=== PATIENT | female | born 1985 | race Two or more races ===

== ENCOUNTER 2017-06-22 07:39 | Inpatient (IN) | payer MEDICAID ==
[~2017-06-22] VITALS: Ht 157.5 cm; Wt 76.2 kg
[2017-06-22] MEDS ORDERED: OXYTOCIN 10 UNIT/ML VIAL. ONE (08:41)
[2017-06-22] MEDS ORDERED: ONDANSETRON PF 4 MG/2 ML VIAL. ONE (08:41)
[2017-06-22] MEDS ORDERED: MORPHINE PF 5 MG/10 ML VIAL. ONE (08:41)
[2017-06-22] MEDS ORDERED: fentaNYL PF VIAL 100 MCG/2 ML VIAL ONE (08:41)
[2017-06-22] MEDS ORDERED: PHENYLEPHRINE in 0.9% NACL PF 1 MG/10 ML DISP.SYRIN. IV ONE (08:42)
[2017-06-22] MEDS ORDERED: ePHEDrine PF IN SALINE 50 MG/5 ML DISP.SYRIN IV ONE (08:42)
[2017-06-22] MEDS ORDERED: 0.9 % SODIUM CHLORIDE 10 ML DISP.SYRIN. IV PRN ×2 (08:45→10:45)
[2017-06-22] MEDS ORDERED: IBUPROFEN 600 MG TABLET. PO PRN (08:45)
[2017-06-22] MEDS ORDERED: TERBUTALINE 1 MG/ML VIAL. SQ PRN (08:45)
[2017-06-22] MEDS ORDERED: LIDOCAINE 1% PF 30 ML VIAL. INJ PRN (08:45)
[2017-06-22] MEDS ORDERED: ONDANSETRON PF 4 MG/2 ML VIAL. IV PRN ×3 (08:45→10:45)
[2017-06-22] MEDS ORDERED: DOCUSATE SODIUM 283 MG/5 ML ENEMA. PR PRN (08:45)
[2017-06-22] MEDS ORDERED: fentaNYL PF VIAL 100 MCG/2 ML VIAL IV PRN (08:45)
[2017-06-22] MEDS ORDERED: ATROPINE 0.5 MG/5 ML DISP.SYRIN. IV PRN (08:45)
[2017-06-22] MEDS ORDERED: diphenhydrAMINE 50 MG/ML VIAL IV PRN (08:45)
[2017-06-22] MEDS ORDERED: NALOXONE 0.4 MG/ML VIAL. IV PRN (08:45)
[2017-06-22] MEDS ORDERED: OXYTOCIN 30 UNIT/500 ML PREMIX 500 ML IV PRN ×2 (08:45→10:45)
--- NOTE | 2017-06-22 08:54 | PDOC1 ---
OB - History Hx of Present Care: Good Care Ultrasounds: Normal mid trimester US Obstetrical Complications: None Medical Complications: None Past Family/Social History * Past Medical, Surgical, Family and Obstetric Histories reviewed from chart. Rubella: Immune RPR/VDRL: Negative GBS Status: Negative HBsAG: Negative OB - Chief Complaint & HPI Date of Admission: Date of Admission: Jun 22, 2017 at 07:39 Chief Complaint/History : 4 Para: 3 EGA: 39 Indication for : desires repeat (and BTL) Admission Nurse Assessment Rev: Yes Problems: OB - Admission Exam Physical Exam HEENT: Normal Heart: Regular Rate Lungs: Clear Abdomen: Gravid, Non tender, Soft Extremities: Edema Reflexes: Normal Cervical Dilatation: 1cm Effacement: 50% Station: -3 Membranes: Intact Heart Rate: Normal Accelerations: Accelerations Present Decelerations: No decelerations Contractions on Admission: 6-10 Minutes Apart Intensity: Mild Text A: 39 wks IUP Previous c/s Desires BTL P: Admit for repeat c/s and BTL. DARRYL GARCIA Jr, MD Jun 22, 2017 08:54
[2017-06-22] MEDS ORDERED: IV RINGERS,LACTATED 500ML 500 ML IV ONE (09:00)
[2017-06-22] MEDS: IV RINGERS,LACTATED 1000ML 1,000 ML IV SCH ×3 (09:05→19:45)
[2017-06-22 09:10] LABS: HEMATOCRIT 33.7 % (36.0-47.0); HEMOGLOBIN 11.5 g/dL (12.0-15.5); RED BLOOD COUNT 4.34 x10^6/uL (3.50-5.40); WHITE BLOOD COUNT 7.8 x10^3/uL (4.0-11.0)
[2017-06-22 09:18] LABS: BILIRUBIN,URINE NEGATIVE (NEG); GLUCOSE,URINE NEGATIVE (NEG); NITRITE,URINE NEGATIVE (NEG); PROTEIN,URINE 30 mg/dL (NEG-TRACE)
[2017-06-22 09:19] LABS: BACTERIA,URINE MANY /HPF (0-FEW); SQUAMOUS EPITHELIAL CELL,UR MANY /LPF
[2017-06-22] MEDS ORDERED: ceFAZolin 2GM PREMIX 2 GM/50 ML BAG IV ONE (09:30)
[2017-06-22] MEDS ORDERED: GLYCOPYRROLATE 1 MG/5 ML VIAL. ONE (09:39)
--- NOTE | 2017-06-22 10:34 | PDOC4 ---
OB Operative Note PRE OP DIAGNOSIS: Previoujs C- section (Desires BTL) POST OP DIAGNOSIS: Other (Same) OPERATION PERFORMED: R KTSC (and BTL) Surgeon Dr. Galeana Anesthesia: Regional (Spinal) Blood Loss 700 ml Specimen placenta and OB Findings: Position (Vertex), Sex (Female), (8/9), Weight (3015 Gram), Fluid (Clear), Nuchal Cord (x1) Complications none Additional Remarks pt. DARRYL Delgado Jr, MD Jun 22, 2017 10:34
[2017-06-22] MEDS ORDERED: SIMETHICONE 80 MG TAB.CHEW PO PRN (10:45)
[2017-06-22] MEDS ORDERED: KETOROLAC 30 MG/ML INJ. IV PRN (10:45)
[2017-06-22] MEDS ORDERED: MAG HYDROX/ALUMINUM HYD/SIMETH 30 ML ORAL.SUSP PO PRN (10:45)
[2017-06-22] MEDS ORDERED: DOCUSATE SODIUM 100 MG CAPSULE. PO PRN (10:45)
[2017-06-22] MEDS ORDERED: diphenhydrAMINE ORAL ELIXIR 12.5 MG/5 ML ML PO PRN (10:45)
[2017-06-22] MEDS ORDERED: ZOLPIDEM 5 MG TABLET. PO PRN (10:45)
--- NOTE | 2017-06-22 11:03 | OP ---
DATE OF SURGERY: 06/22/2017 PREOPERATIVE DIAGNOSES: 1. 39 weeks intrauterine . 2. Previous . 3. Desires bilateral tubal ligation. POSTOPERATIVE DIAGNOSES: 1. 39 weeks intrauterine . 2. Previous . 3. Desires bilateral tubal ligation. PROCEDURE: Repeat low transverse section and bilateral tubal ligation via the [place] method. SURGEON: Darryl Galeana MD. ANESTHESIA: Spinal. ESTIMATED BLOOD LOSS: 700 mL. COMPLICATIONS: None. FINDINGS: Viable female infant, Apgars 8 and 9, weight grams. Nuchal cord x 1, 3-vessel cord placenta delivered manually intact. SUMMARY: A 31-year-old 3, para 2 at 39 weeks who presented for repeat and bilateral tubal ligation. She was counseled on risks, benefits and expectations as well as the failure rate from tubal ligation and voiced clear understanding to proceed. DESCRIPTION OF PROCEDURE: The patient was taken to surgery suite, placed in the dorsal supine position. She was prepped with ChloraPrep and draped in sterile fashion. After adequate anesthesia, a Pfannenstiel skin incision was made with a scalpel down to and through the fascia. The fascia was extended laterally using curved Young scissors. The superior edge of the fascia grasped with 2 Nir clamps and dissected free of the abdominal rectus muscles using blunt dissection along with Bovie cautery. Same process took place inferiorly. The abdominal rectus muscles were dissected using curved Young scissors. The peritoneum was entered with Metzenbaum scissors and extended superiorly as well as inferiorly. The Ezekiel ring retractor was placed. Bladder flap was created using the [place] pickups and sharp dissection with Metzenbaum scissors. A low transverse hysterotomy incision was made with scalpel down to amniotic sac. The hysterotomy incision was extended laterally and superiorly. Amniotomy was performed using an Allis clamp, which elicited moderate amount of clear fluid. With the aid of fundal pressure, the infant's head was delivered in a smooth atraumatic manner. Nuchal cord x 1 was visualized and reduced. With additional fundal pressure, the anterior shoulder was delivered followed by posterior shoulder and rest of the female was delivered. The infant was suctioned with bulb syringe orally and nasally. The umbilical cord was clamped twice and cut. A viable female infant was handed to awaiting nursing staff. Umbilical cord blood was then obtained. Three-vessel cord placenta was delivered manually intact. The uterus was then exteriorized and cleared of clot and debris with a moist lap. Hysterotomy incision was reapproximated using 1-0 Vicryl suture in running locked fashion. [id number] sutures were placed in the left apex of the hysterotomy incision. This also included the left uterine artery ligation for better hemostasis. The uterus palpated firm, fallopian tubes and ovaries appeared normal bilaterally. Posterior cul-de-sac was cleared of clot and debris with a moist lap. The right fallopian tube was grasped with a Humble, undermined with Bovie cautery. The proximal and distal ends of the fallopian tube were tied with plain gut suture. The mid section of fallopian tube was removed with an aid of Metzenbaum scissors. The 2 telescoping ends were visualized and hemostatic. Same process took place on the left fallopian tube. The uterus was then returned to the abdomen. Hysterotomy incision was reviewed and was hemostatic. The pericolic gutters were cleared of clot and debris with a moist lap. Interceed was placed over the hysterotomy incision in an inverted T fashion. The Ezekiel ring retractor was removed. The peritoneum was reapproximated using 1-0 Vicryl suture in a running fashion. Fascia was reapproximated using 0 Vicryl suture in a running fashion. Skin was reapproximated using 4-0 Vicryl suture in subcuticular manner. The patient tolerated the procedure well and was taken to recovery room in stable condition. Sponge and needle count correct x 3. DRARYL GALEANA MD DR: MEE/quincy JOB#: [id number] / [id number]
[2017-06-22 13:37] VITALS: BP 95/61
[2017-06-22] MEDS: FERROUS SULFATE 325 MG TABLET. PO SCH (17:00)
[2017-06-22 17:15] VITALS: BP 102/68
[2017-06-22 19:30] VITALS: BP 91/54
[2017-06-23 01:18] VITALS: BP 92/53
[2017-06-23] MEDS: IBUPROFEN 800 MG TABLET. PO PRN ×3 (01:22→21:03)
[2017-06-23 06:22] LABS: BASO % 0 % (0-3); EOS % 0 % (0-3); HEMATOCRIT 30.1 % (36.0-47.0); HEMOGLOBIN 10.1 g/dL (12.0-15.5); LYMPH % 20 % (24-48); MEAN CORPUSCULAR HEMOGLOBIN 26 pg (25-35); MEAN CORPUSCULAR HGB CONC 33 g/dL (31-37); MEAN CORPUSCULAR VOLUME 78 fL (79-100); MONO % 7 % (0-9); NEUT % 72 % (31-73); PLATELET COUNT 257 x10^3/uL (140-400); RED BLOOD COUNT 3.87 x10^6/uL (3.50-5.40); RED CELL DISTRIBUTION WIDTH 15.2 % (11.5-14.5); WHITE BLOOD COUNT 9.9 x10^3/uL (4.0-11.0)
[2017-06-23 06:23] VITALS: BP 102/68
[2017-06-23] MEDS: FERROUS SULFATE 325 MG TABLET. PO SCH ×2 (06:59→17:00)
--- NOTE | 2017-06-23 08:12 | PDOC ---
OB Progress Note Date of Service 06/23/17 Time of Evaluation 0810 Notes Pt. feeling well. Pain controlled. she is breast feeding. Lochia minimal. Pt. ambulating, voiding and tolerating regular diet. Lab Laboratory Tests Test 06/22/17 08:25 06/22/17 08:30 06/23/17 06:02 White Blood Count 7.8 x10^3/uL (4.0-11.0) 9.9 x10^3/uL (4.0-11.0) Red Blood Count 4.34 x10^6/uL (3.50-5.40) 3.87 x10^6/uL (3.50-5.40) Hemoglobin 11.5 g/dL (12.0-15.5) 10.1 g/dL (12.0-15.5) Hematocrit 33.7 % (36.0-47.0) 30.1 % (36.0-47.0) Mean Corpuscular Volume 78 fL (79-100) 78 fL (79-100) Mean Corpuscular Hemoglobin 27 pg (25-35) 26 pg (25-35) Mean Corpuscular Hemoglobin Concent 34 g/dL (31-37) 33 g/dL (31-37) Red Cell Distribution Width 15.0 % (11.5-14.5) 15.2 % (11.5-14.5) Platelet Count 320 x10^3/uL (140-400) 257 x10^3/uL (140-400) RPR Titer Additional Testing Non reactive (Non Reactive) Urine Collection Type Unknown Urine Color Straw Urine Clarity Hazy Urine pH 7.0 Urine Specific Monitor 1.020 Urine Protein 30 mg/dL (NEG-TRACE) Urine Glucose (UA) Negative mg/dL (NEG) Urine Ketones (Stick) Negative mg/dL (NEG) Urine Blood Moderate (NEG) Urine Nitrite Negative (NEG) Urine Bilirubin Negative (NEG) Urine Urobilinogen Dipstick 1.0 mg/dL (0.2 mg/dL) Urine Leukocyte Esterase Large (NEG) Urine RBC 3-5 /HPF (0-2) Urine WBC 11-20 /HPF (0-4) Urine Squamous Epithelial Cells Many /LPF Urine Bacteria Many /HPF (0-FEW) Neutrophils (%) (Auto) 72 % (31-73) Lymphocytes (%) (Auto) 20 % (24-48) Monocytes (%) (Auto) 7 % (0-9) Eosinophils (%) (Auto) 0 % (0-3) Basophils (%) (Auto) 0 % (0-3) Neutrophils # (Auto) 7.2 x10^3uL (1.8-7.7) Lymphocytes # (Auto) 2.0 x10^3/uL (1.0-4.8) Monocytes # (Auto) 0.7 x10^3/uL (0.0-1.1) Eosinophils # (Auto) 0.0 x10^3/uL (0.0-0.7) Basophils # (Auto) 0.0 x10^3/uL (0.0-0.2) Laboratory Tests Test 06/22/17 08:25 06/22/17 08:30 06/23/17 06:02 White Blood Count 7.8 x10^3/uL (4.0-11.0) 9.9 x10^3/uL (4.0-11.0) Red Blood Count 4.34 x10^6/uL (3.50-5.40) 3.87 x10^6/uL (3.50-5.40) Hemoglobin 11.5 g/dL (12.0-15.5) 10.1 g/dL (12.0-15.5) Hematocrit 33.7 % (36.0-47.0) 30.1 % (36.0-47.0) Mean Corpuscular Volume 78 fL (79-100) 78 fL (79-100) Mean Corpuscular Hemoglobin 27 pg (25-35) 26 pg (25-35) Mean Corpuscular Hemoglobin Concent 34 g/dL (31-37) 33 g/dL (31-37) Red Cell Distribution Width 15.0 % (11.5-14.5) 15.2 % (11.5-14.5) Platelet Count 320 x10^3/uL (140-400) 257 x10^3/uL (140-400) RPR Titer Additional Testing Non reactive (Non Reactive) Urine Collection Type Unknown Urine Color Straw Urine Clarity Hazy Urine pH 7.0 Urine Specific Monitor 1.020 Urine Protein 30 mg/dL (NEG-TRACE) Urine Glucose (UA) Negative mg/dL (NEG) Urine Ketones (Stick) Negative mg/dL (NEG) Urine Blood Moderate (NEG) Urine Nitrite Negative (NEG) Urine Bilirubin Negative (NEG) Urine Urobilinogen Dipstick 1.0 mg/dL (0.2 mg/dL) Urine Leukocyte Esterase Large (NEG) Urine RBC 3-5 /HPF (0-2) Urine WBC 11-20 /HPF (0-4) Urine Squamous Epithelial Cells Many /LPF Urine Bacteria Many /HPF (0-FEW) Neutrophils (%) (Auto) 72 % (31-73) Lymphocytes (%) (Auto) 20 % (24-48) Monocytes (%) (Auto) 7 % (0-9) Eosinophils (%) (Auto) 0 % (0-3) Basophils (%) (Auto) 0 % (0-3) Neutrophils # (Auto) 7.2 x10^3uL (1.8-7.7) Lymphocytes # (Auto) 2.0 x10^3/uL (1.0-4.8) Monocytes # (Auto) 0.7 x10^3/uL (0.0-1.1) Eosinophils # (Auto) 0.0 x10^3/uL (0.0-0.7) Basophils # (Auto) 0.0 x10^3/uL (0.0-0.2) Medications Current Medications Ondansetron HCl (Zofran) 4 mg PRN Q6HRS PRN IV NAUSEA/VOMITING; Start 06/22/17 at 08:45; Stop 06/22/17 at 15:18; Status DC Diphenhydramine HCl (Benadryl) 12.5 mg PRN Q2HR PRN IV ITCHING; Start 06/22/17 at 08:45; Stop 06/23/17 at 08:44 Atropine Sulfate 0.5 mg PRN 1X PRN IV SEE COMMENTS; Start 06/22/17 at 08:45; Stop 06/22/17 at 15:18; Status DC Naloxone HCl (Narcan) 0.04 mg PRN Q2MIN PRN IV SEE COMMENTS; Start 06/22/17 at 08:45; Stop 06/23/17 at 08:44 Sodium Chloride (Normal Saline Flush) 3 ml QSHIFT PRN IV AFTER MEDS AND BLOOD DRAWS; Start 06/22/17 at 08:45; Stop 06/22/17 at 15:18; Status DC Ringer's Solution 1,000 ml @ 125 mls/hr Q8H IV Last administered on 06/22/17t 19:45; Start 06/22/17 at 08:39 Fentanyl Citrate (Fentanyl 2ml Vial) 50 mcg PRN Q30MIN PRN IV Mild to moderate pain; Start 06/22/17 at 08:45 Ondansetron HCl (Zofran) 4 mg PRN Q4HRS PRN IV NAUSEA/VOMITING; Start 06/22/17 at 08:45; Stop 06/22/17 at 15:18; Status DC Terbutaline Sulfate (Brethine) 0.25 mg 1X PRN PRN SQ SEE COMMENTS; Start at 08:45; Stop 06/22/17 at 15:18; Status DC Lidocaine HCl 30 ml 1X PRN PRN INJ SEE COMMENTS; Start 06/22/17 at 08:45; Stop 06/22/17 at 15:18; Status DC Oxytocin/Sodium Chloride 500 ml @ 0 mls/hr CONT PRN PRN IV Post delivery bleeding; Start 06/22/17 at 08:45; Stop 06/22/17 at 15:18; Status DC Ibuprofen (Motrin) 600 mg PRN Q6HRS PRN PO PAIN; Start 06/22/17 at 08:45 Docusate Sodium (Enemeez) 283 mg PRN DAILY PRN DE CONSTIPATION; Start 06/22/17 at 08:45 Cefazolin Sodium/ Dextrose 50 ml @ 100 mls/hr 1X ONCE IV ; Start 06/22/17 at 08:45; Stop 06/22/17 at 15:18; Status DC Ringer's Solution 500 ml @ 500 mls/hr 1X ONCE IV ; Start 06/22/17 at 09:00; Stop 06/22/17 at 15:18; Status DC Glycopyrrolate (Robinul) 1 mg STK-MED ONCE .ROUTE ; Start 06/22/17 at 09:39; Stop 06/22/17 at 15:18; Status DC Ondansetron HCl (Zofran) 4 mg STK-MED ONCE .ROUTE ; Start 06/22/17 at 08:41; Stop 06/22/17 at 15:18; Status DC Oxytocin (Pitocin) 10 unit STK-MED ONCE .ROUTE ; Start 06/22/17 at 08:41; Stop 06/22/17 at 15:18; Status DC Morphine Sulfate (Morphine Preservative Free) 5 mg STK-MED ONCE .ROUTE ; Start 06/22/17 at 08:41; Stop 06/22/17 at 15:18; Status DC Ephedrine Sulfate 50 mg STK-MED ONCE IV ; Start 06/22/17 at 08:42; Stop at 15:18; Status DC Phenylephrine HCl 1 mg STK-MED ONCE IV ; Start 06/22/17 at 08:42; Stop 06/22/17 at 15:18; Status DC Fentanyl Citrate (Fentanyl 2ml Vial) 100 mcg STK-MED ONCE .ROUTE ; Start at 08:41; Stop 06/22/17 at 15:18; Status DC Sodium Chloride (Normal Saline Flush) 3 ml QSHIFT PRN IV AFTER MEDS AND BLOOD DRAWS; Start 06/22/17 at 10:45 Oxytocin/Sodium Chloride 500 ml @ 125 mls/hr CONT PRN IV EXCESSIVE POST- BLEEDING; Start 06/22/17 at 10:45; Stop 06/22/17 at 18:44; Status DC Ibuprofen (Motrin) 800 mg PRN Q8HRS PRN PO INFLAMMATION Last administered on t 01:22; Start 06/22/17 at 10:45 Ondansetron HCl (Zofran) 4 mg PRN Q6HRS PRN IV NAUSEA/VOMITING; Start 06/22/17 at 10:45 Docusate Sodium (Colace) 100 mg PRN BID PRN PO CONSTIPATION; Start 06/22/17 at 10:45 Al Hydroxide/Mg Hydroxide (Mylanta Plus Xs) 30 ml PRN Q4HRS PRN PO HEARTBURN / GAS; Start 06/22/17 at 10:45 Simethicone (Gas-X) 80 mg PRN AFTMEALHC PRN PO GAS / BLOATING; Start 06/22/17 at 10:45 Diphenhydramine HCl (Benadryl Oral Elixir) 12.5 mg PRN Q6HRS PRN PO ITCHING; Start 06/22/17 at 10:45 Ferrous Sulfate (Feosol) 325 mg BIDWMEALS PO ; Start 06/22/17 at 17:00 Zolpidem Tartrate (Ambien) 5 mg PRN QHS PRN PO INSOMNIA, MAY REPEAT X1; Start 06/22/17 at 10:45 Oxycodone/ Acetaminophen (Percocet 5/325) 2 tab PRN Q4HRS PRN PO MODERATE PAIN , SEVERE PAIN; Start 06/22/17 at 10:45 Ketorolac Tromethamine (Toradol) 30 mg PRN Q6HRS PRN IV PAIN; Start 06/22/17 at 10:45; Stop 06/27/17 at 10:44 Exam Abd: soft, mild tenderness, fundus firm Bandage removed. Incision site: clean, dry and intact Assessment POD#1 s/p repeat c/s and BTL Plan of Care: Continue current Tx, Mgmt DARRYL GARCIA Jr, MD Jun 23, 2017 08:12
[2017-06-23] MEDS: oxyCODONE/APAP 5/325 1 TAB TABLET PO PRN ×3 (08:31→21:03)
[2017-06-23 11:54] VITALS: BP 104/72
[2017-06-23 18:06] VITALS: BP 98/68
[2017-06-23 21:00] VITALS: BP 90/67
[2017-06-24 05:00] VITALS: BP 112/75
[2017-06-24] MEDS: IBUPROFEN 800 MG TABLET. PO PRN ×2 (05:49→13:42)
[2017-06-24] MEDS: oxyCODONE/APAP 5/325 1 TAB TABLET PO PRN ×2 (05:49→13:42)
[2017-06-24 09:42] VITALS: BP 99/60
[2017-06-24] MEDS ORDERED: IBUP-1060 PO (13:28)
[2017-06-24] MEDS ORDERED: DOCU-109 PO (13:28)
[2017-06-24] MEDS ORDERED: OXYC-323 PO (13:28)
--- NOTE | 2017-06-24 13:58 | PATHOLOGY ---
PATHOLOGY REPORT * * * * * * * * FINAL DIAGNOSIS: A. Right tubal ligation: - Segment of fallopian tube confirmed. B. Left tubal ligation: - Segment of fallopian tube confirmed. (JPM:keshav; 06/24/2017) REPORT ELECTRONICALLY SIGNED BY: Jovany Neal M.D. DATE/TIME: 06/24/2017 13:46 * * * * * * * * GROSS PATHOLOGY: A. Received in formalin labeled "Steve Sykes R fallopian tube," is a non-fimbriated segment of fallopian tube measuring 1.4 cm in length and 0.7 cm in diameter. The serosal surface is glistening and rodriguez-livingston in appearance. The tissue is submitted entirely in cassette A1. B. Received in formalin labeled "Steve Sykes L fallopian tube," is a non-fimbriated segment of fallopian tube measuring 1.4 cm in length and 0.7 cm in diameter. The serosal surface is glistening and rodriguez-livingston in appearance. The tissue is submitted entirely in cassette B1. (DAC; 06/23/2017) INITIAL CPT CODE(S): A; 07899 B; 88895 Professional services performed by [facility] [place] [address] Technical services performed by [facility] at [address] [place] [address], [facility] [address], [place] [address]. SPECIMEN(S) RECEIVED: A.Right fallopian tube B.Left fallopian tube CLINICAL HISTORY: Term with repeat and bilateral tubal ligation, , EDC 06-29-17 PATIENT: STEVE SYKES /AGE: 109/27/1985 (Age: 31) PATIENT #: [id number] ALT CASE #: SPECIMEN COLLECTION DATE: 06/22/2017 SPECIMEN RECEIVED DATE: 06/22/2017 [facility] - [address] [place] [address] - PHONE: [phone] * * * END OF REPORT * * *
== END 2017-06-24 15:15 | disposition home or self-care (01) | DRG 766 ==
LOC: 3 SO LND 07:39 → 3 NORTH 13:37
PROVIDERS: ADMIT Obstetrics & Gynecology; ATTEND Obstetrics & Gynecology
PROC: 0UB70ZZ Excision of Bilateral Fallopian Tubes, Open Approach (ICD-10-PCS; principal; 2017-06-22)
PROC: 10D00Z1 Extraction of Products of Conception, Low, Open Approach (ICD-10-PCS; 2017-06-22)
DX: O34.211 Maternal care for low transverse scar from previous cesarean delivery (principal); D63.8 Anemia in other chronic diseases classified elsewhere; O99.02 Anemia complicating childbirth; O69.81X0 Labor and delivery complicated by cord around neck, without compression, not applicable or unspecified; Z37.0 Single live birth; Z30.2 Encounter for sterilization; Z3A.39 39 weeks gestation of pregnancy
CPT/HCPCS: 36415; 81001; 85025; 85027; 86593; 86850; 86900; 86901; 87086; 88302; J0690; J2270; J2370; J2405; J2590; J3010; J3490; J7120